=== PATIENT | male | born 1975 | race African-American/Black ===

== ENCOUNTER 2020-01-29 22:08 | Emergency (ER) | payer MEDICAID ==
[~2020-01-29] VITALS: Ht 185.4 cm; Wt 109.7 kg
[2020-01-30] MEDS ORDERED: IBUPROFEN 800 MG TABLET ONE (01:20)
[2020-01-30] MEDS ORDERED: IBUPROFEN 800 MG TABLET PO ONE (01:30)
[2020-01-30 01:35] VITALS: BP 150/100
== END 2020-01-30 01:38 | disposition home or self-care (01) ==
LOC: ED 01-30 00:45
DX: G89.11 Acute pain due to trauma (principal); M79.652 Pain in left thigh; W01.0XXA Fall on same level from slipping, tripping and stumbling without subsequent striking against object, initial encounter; Y93.89 Activity, other specified; Y92.89 Other specified places as the place of occurrence of the external cause; Y92.59 Other trade areas as the place of occurrence of the external cause; Y99.8 Other external cause status
CPT/HCPCS: 99283